=== PATIENT | female | born 1990 | race Caucasian/White ===

== ENCOUNTER 2017-03-15 11:46 | Emergency (ER) | payer MEDICAID ==
[~2017-03-15] VITALS: Ht 149.9 cm; Wt 54.0 kg
[2017-03-15 11:49] VITALS: Ht 149.9 cm; Wt 54.0 kg
[2017-03-15 13:07] LABS: ADD SCAN DIFF NO
[2017-03-15 13:11] LABS: BASOPHILS % 0.4 % (0.0-2.0); EOSINOPHILS # 0.1 10^3/ul (0.0-0.5); EOSINOPHILS % 0.6 % (0.0-7.0); HEMATOCRIT 38.2 % (37.0-47.0); HEMOGLOBIN 13.1 g/dl (12.0-16.0); LYMPHOCYTES # 2.7 10^3/ul (0.8-2.9); MEAN CORPUSCULAR HEMOGLOBIN 31.2 pg (29.0-33.0); MEAN CORPUSCULAR HGB CONC 34.3 g/dl (32.0-37.0); MONOCYTE # 0.8 10^3/ul (0.3-0.9); MONOCYTES % 8.5 % (0.0-11.0); NEUTROPHILS % 62.3 % (39.0-77.0); PLATELET COUNT 341 10^3/UL (140-415); RED CELL DISTRIBUTION WIDTH 12.7 % (11.5-14.5); WHITE BLOOD COUNT 9.6 10^3/ul (4.8-10.8)
[2017-03-15 13:21] LABS: ADD UMIC YES; UR ASCORBIC ACID NEGATIVE (NEGATIVE); UR BACTERIA FEW /HPF (NONE SEEN); UR BILIRUBIN (Dip) NEGATIVE (NEGATIVE); UR BLOOD (Dip) 3+ mg/dL (NEGATIVE); UR CLARITY CLEAR (CLEAR); UR COLOR YELLOW (YELLOW); UR GLUCOSE (Dip) NEGATIVE (NEGATIVE); UR KETONES (Dip) NEGATIVE (NEGATIVE); UR LEUKOCYTE ESTERASE (Dip) NEGATIVE Leu/ul (NEGATIVE); UR NITRITE (Dip) NEGATIVE (NEGATIVE); UR RBC 32 /HPF (0-5); UR SPECIFIC GRAVITY (Dip) 1.013 (1.003-1.030); UR TOTAL PROTEIN (Dip) NEGATIVE (NEGATIVE); UR UROBILINOGEN (Dip) NEGATIVE (NEGATIVE)
--- NOTE | 2017-03-15 13:33 | RADRPT ---
PROCEDURE: US OB. CLINICAL INDICATION: Vaginal bleeding a first trimester female. TECHNIQUE: Transabdominal and transvaginal views of the pelvis are available for review. COMPARISON: No prior studies are available for comparison. FINDINGS: The uterus measures 7.1 cm sagittal by 3.2 cm AP by 3.7 cm transverse. The endometrial thickness tra nsabdominal imaging is 6.2 mm. No gestational sac is identified. Free fluid is noted in the cul-de -sac near the cervix. The right ovary measures 2.7 x 1.3 x 1.5 cm. The left ovary measures 2.4 x 1.2 x 1.4 cm. IMPRESSION: 1. No IUP is identified. Findings are suggestive of a spontaneous . The differential diagn osis includes ectopic or normal early IUP. 2. When no IUP is demonstrated, correlation with serial beta HCG is recommended. With a quantitative beta HCG >2000, the differential diagnosis includes spontaneous or ecto pic . Therefore, clinical follow-up is recommended including correlation with serial quant itative beta HCG levels and repeat sonogram with rising levels and/or/or localized or persistent camron n. With quantitative beta HCG < 2000, the differential diagnosis includes early normal IVP or spontaneo us or ectopic . Therefore, clinical follow-up is recommended including correlatio n with serial quantitative beta HCG levels and arising levels and / or persistent pain. 3. The ovaries are unremarkable. 4. Trace fluid in the cul-de-sac. 5. Findings were phoned to the emergency room physician. RPTAT:AAJJ Physician Jarad Date Time Electronically viewed and signed by Physician Jarad on 03/15/2017 13:32 PHILLIP/
[2017-03-15] MEDS ORDERED: CEPH-443 PO (14:21)
--- NOTE | 2017-03-15 14:31 | ERD ---
ER Documentation Chief Complaint Date/Time DATE: 03/15/17 TIME: 14:24 Chief Complaint vaginal bleeding and pelvic pain x today 5 weeks HPI Patient is a 26-year-old female, G2, P0, A1, who presents to the ED for concerns of vaginal bleeding and bilateral pelvic pain which started this morning. Patient reports bright red blood. Patient states she is 4 pads thus far today. Patient denies any fevers, chills, nausea, vomiting. Patient denies any dysuria, urgency or diarrhea. Patient states her last menstrual period was on January 24, 2017 ROS All systems reviewed and are negative except as per history of present illness. Medications Home Meds Active Scripts Cephalexin* (Keflex*) 500 Mg Capsule, 500 MG PO QID for 7 Days, CAP Prov:ANTOLIN SEGOVIA PA-C 03/15/17 Allergies Allergies: Coded Allergies: No Known Allergy (Unverified , 03/15/17) PMhx/Soc Medical and Surgical Hx: pt denies Medical Hx, pt denies Surgical Hx History of Surgery: No Anesthesia Reaction: No Hx Neurological Disorder: No Hx Respiratory Disorders: No Hx Cardiac Disorders: No Hx Psychiatric Problems: No Hx Miscellaneous Medical Probl: No Hx Alcohol Use: No Hx Substance Use: No Hx Tobacco Use: No Smoking Status: Never smoker Physical Exam Vitals Vital Signs Date Time Temp Pulse Resp B/P Pulse Ox O2 Delivery O2 Flow Rate FiO2 03/15/17 11:49 98.2 73 16 119/76 99 Physical Exam GENERAL: Well-developed, well-nourished female. Appears in no acute distress. HEAD: Normocephalic, atraumatic. EYES: Pupils are equally reactive bilaterally. EOMs grossly intact. No conjunctival erythema. ENT: Moist mucous membranes. No uvula deviation. No kissing tonsils. NECK: Supple. No meningismus. Normal range of motion of the neck. LUNG: Clear to auscultation bilaterally. No rhonchi, wheezing, rales or coarse breath sounds. HEART: Regular rate and rhythm. No murmurs, rubs or gallops. ABDOMEN: Soft, and nondistended. Tender to palpation in the suprapubic region. Positive bowel sounds in all four quadrants. No rebound tenderness, no guarding. (-) McBurney's point tenderness. No CVA tenderness. BACK: No midline tenderness. EXTREMITIES: Equal pulses bilaterally. No peripheral clubbing, cyanosis or edema. No unilateral leg swelling. NEUROLOGIC: Alert and oriented. Moving all four extremities without any difficulty. Normal speech. Steady gait. SKIN: Normal color. Warm and dry. No rashes or lesions. Result Diagram: 03/15/17 1255 Results 24 hrs Laboratory Tests Test 03/15/17 12:55 White Blood Count 9.610^3/ul Red Blood Count 4.2010^6/ul Hemoglobin 13.1g/dl Hematocrit 38.2% Mean Corpuscular Volume 91.0fl Mean Corpuscular Hemoglobin 31.2pg Mean Corpuscular Hemoglobin Concent 34.3g/dl Red Cell Distribution Width 12.7% Platelet Count 21259^3/UL Mean Platelet Volume 10.0fl Neutrophils % 62.3% Lymphocytes % 28.0% Monocytes % 8.5% Eosinophils % 0.6% Basophils % 0.4% Nucleated Red Blood Cells % 0.0/100WBC Neutrophils # 6.010^3/ul Lymphocytes # 2.710^3/ul Monocytes # 0.810^3/ul Eosinophils # 0.110^3/ul Basophils # 0.010^3/ul Nucleated Red Blood Cells # 0.010^3/ul Urine Color YELLOW Urine Clarity CLEAR Urine pH 5.0 Urine Specific [place] 1.013 Urine Ketones NEGATIVEmg/dL Urine Nitrite NEGATIVEmg/dL Urine Bilirubin NEGATIVEmg/dL Urine Urobilinogen NEGATIVEmg/dL Urine Leukocyte Esterase NEGATIVELeu/ul Urine Microscopic RBC 32/HPF Urine Microscopic WBC 23/HPF Urine Bacteria FEW/HPF Urine Hemoglobin 3+mg/dL Urine Glucose NEGATIVEmg/dL Urine Total Protein NEGATIVEmg/dl Beta HCG, Quantitative 8.6mIU/ml Procedures/MDM ED COURSE: The patient was stable throughout ED course. I kept the patient and/or family informed of laboratory and diagnostic imaging results throughout the ED course. DIAGNOSTIC IMAGING: Read by radiologist. Patient: DAVID NO : 1990 Age: 26 Sex: F MR #: [id number] DOS: 03/15/17 1233 Ordering MD: ANTOLIN SEGOVIA PA-C Location: [facility] Room/Bed: PROCEDURE: US OB. CLINICAL INDICATION: Vaginal bleeding a first trimester female. TECHNIQUE: Transabdominal and transvaginal views of the pelvis are available for review. COMPARISON: No prior studies are available for comparison. FINDINGS: The uterus measures 7.1 cm sagittal by 3.2 cm AP by 3.7 cm transverse. The endometrial thickness transabdominal imaging is 6.2 mm. No gestational sac is identified. Free fluid is noted in the cul-de-sac near the cervix. The right ovary measures 2.7 x 1.3 x 1.5 cm. The left ovary measures 2.4 x 1.2 x 1.4 cm. IMPRESSION: 1. No IUP is identified. Findings are suggestive of a spontaneous . The differential diagnosis includes ectopic or normal early IUP. 2. When no IUP is demonstrated, correlation with serial beta HCG is recommended. With a quantitative beta HCG >2000, the differential diagnosis includes spontaneous or ectopic . Therefore, clinical follow-up is recommended including correlation with serial quantitative beta HCG levels and repeat sonogram with rising levels and/or/or localized or persistent pain. With quantitative beta HCG < 2000, the differential diagnosis includes early normal IVP or spontaneous or ectopic . Therefore, clinical follow-up is recommended including correlation with serial quantitative beta HCG levels and arising levels and / or persistent pain. 3. The ovaries are unremarkable. 4. Trace fluid in the cul-de-sac. 5. Findings were phoned to the emergency room physician. RPTAT:AAJJ Physician Jarad Date Time Electronically viewed and signed by Physician Jarad on 03/15/2017 13:32 PHILLIP/ CC: ANTOLIN SEGOVIA PA-C MEDICAL DECISION MAKING: This is a 26-year-old female who presents with vaginal bleeding and pelvic pain 1 day. Vital signs were reviewed. Patient was afebrile. Patient was hemodynamically stable. Beta-hCG was noted to be 8.6. Patient was a positive. No RhoGam was given. CBC showed no evidence of systemic infection or severe anemia. Pelvic ultrasound showed 1. No IUP is identified. Findings are suggestive of a spontaneous . The differential diagnosis includes ectopic or normal early IUP. Urinalysis showed positive RBCs, positive WBCs. At this time, the patient's presentation is most consistent with spontaneous and urinary tract infection. Unable to definitively rule out ectopic at this time however low suspicion. Suspicion for molar , subchorionic hematoma, incomplete , missed , placental abruption, and embryonic . PRESCRIPTIONS: Keflex DISCHARGE: At this time, patient is stable for discharge and outpatient management. I had a conversation at length with the patient about the concerns of vaginal bleeding during the 1st trimester of . Patient and/or family understands that her vaginal bleeding can be a normal finding or a sign of miscarriage. I have instructed the patient to follow-up with her OBGYN in 2 days or return to ED in 2 days for further monitoring including a repeat b-HCG level. I have instructed the patient to promptly return to the ER at any time for any new or worsening symptoms including increased pain, nausea, vomiting, continued bleeding, weakness, syncope or fever. The patient and/or family expressed understanding of and agreement with this plan. All questions were answered. Home care instructions were provided. Departure Diagnosis: Primary Impression: Spontaneous Additional Impression: Vaginal bleeding in patient at less than 20 weeks ges... Condition: Stable Patient Instructions: Bleeding During Early Referrals: COMMUNITY CLINICS YOU HAVE RECEIVED A MEDICAL SCREENING EXAM AND THE RESULTS INDICATE THAT YOU DO NOT HAVE A CONDITION THAT REQUIRES URGENT TREATMENT IN THE EMERGENCY DEPARTMENT. FURTHER EVALUATION AND TREATMENT OF YOUR CONDITION CAN WAIT UNTIL YOU ARE SEEN IN YOUR DOCTORS OFFICE WITHIN THE NEXT 1-2 DAYS. IT IS YOUR RESPONSIBILITY TO MAKE AN APPOINTMENT FOR FOLOW-UP CARE. IF YOU HAVE A PRIMARY DOCTOR --you should call your primary doctor and schedule an appointment IF YOU DO NOT HAVE A PRIMARY DOCTOR YOU CAN CALL OUR PHYSICIAN REFERRAL HOTLINE AT IF YOU CAN NOT AFFORD TO SEE A PHYSICIAN YOU CAN CHOSE FROM THE FOLLOWING [facility] CL[facility] [address] [facility] [address] [facility]. [facility] [address] [facility] [address] [facility] [address] [facility]. [facility] [address] [facility]. [facility] YOU HAVE RECEIVED A MEDICAL SCREENING EXAM AND THE RESULTS INDICATE THAT YOU DO NOT HAVE A CONDITION THAT REQUIRES URGENT TREATMENT IN THE EMERGENCY DEPARTMENT. FURTHER EVALUATION AND TREATMENT OF YOUR CONDITION CAN WAIT UNTIL YOU ARE SEEN IN YOUR DOCTORS OFFICE WITHIN THE NEXT 1-2 DAYS. IT IS YOUR RESPONSIBILITY TO MAKE AN APPOINTMENT FOR FOLOW-UP CARE. IF YOU HAVE A PRIMARY DOCTOR --you should call your primary doctor and schedule and appointment IF YOU DO NOT HAVE A PRIMARY DOCTOR YOU CAN CALL OUR PHYSICIAN REFERRAL HOTLINE AT . IF YOU CAN NOT AFFORD TO SEE A PHYSICIAN YOU CAN CHOSE FROM THE FOLLOWING [facility]IC HOSP[facility] INSTITUTIONS: [facility] [address] [place] [address] [facility] [address] [place] [address] [facility] + [facility] [address] [place] [address] Additional Instructions: Call your primary care doctor TOMORROW for an appointment during the next 1-2 days.See the doctor sooner or return here if your condition worsens before your appointment time. Follow up with OBGYN or return here in 2 days for recheck of BHCG. ANTOLIN SEGOVIA PA-C Mar 15, 2017 14:31
[2017-03-15 14:36] VITALS: BP 115/74; PULSE 67; RESP 18; TEMP 98.2
== END 2017-03-15 14:37 | disposition home or self-care (01) ==
LOC: FTE 11:46
DX: O03.9 Complete or unspecified spontaneous abortion without complication (principal); R10.2 Pelvic and perineal pain
CPT/HCPCS: 36415; 76801; 76817; 81001; 84702; 85025; 86900; 86901; Z7502

== ENCOUNTER 2018-04-09 09:12 | Emergency (ER) | END 2018-04-09 12:19 | disposition home or self-care (01) ==

== ENCOUNTER 2019-03-07 08:55 | Outpatient (CLI) | payer MEDICAID ==
[~2019-03-07] VITALS: Ht 149.9 cm; Wt 64.0 kg
[~2019-03-07 08:55] MED LIST: CEPH-443 PO; CYCL10TA7 PO; IBUP-1542 PO; NITR-58 PO
[2019-03-07 10:05] VITALS: Ht 149.9 cm; Wt 64.0 kg
[2019-03-07 10:06] VITALS: BP 113/77; PULSE 83; RESP 18
--- NOTE | 2019-03-07 12:31 | TRIAGE ---
OB Triage Datetime Report Generated by CPN: 03/07/2019 12:31 Datetime: 03/07/2019 10:18 Vaginal Exam Dilatation (cms): 1.5 Effacement (%): 70 Station: -3 Exam By: CHARU RN Vaginal Bleeding: None Cervix, Consistency: Moderate Cervix, Position: Anterior Presentation 'A': Cephalic Datetime: 03/07/2019 10:11 Maternal Assessment Level of Consciousness: Keenly Alert, Responsive DTR's/Clonus: DTRs 2+ Headache: Denies Blurred Vision: No Nausea/Vomiting: Denies RUQ Epigastric Pain: Denies Facial Edema: None Labor Evaluation Monitor Mode: External Quality: Moderate Pattern: Normal: <= 5 Contractions in 10 Minutes Resting Tone [place]: Relaxed Heart Rate FHR Baseline Rate: 150 Monitor Mode: External US FHR Baseline Changes: No Baseline Change Variability: Moderate 6-25 bpm Accelerations: 15X15 Decelerations: None Category: Category I Pain Assessment Pain Scale: 0 Pain Presence: None/Denies Pain Goal: 3 Membrane Status: Intact Datetime: 03/07/2019 10:10 Time of Arrival: 03/07/2019 08:50 EGA: 39.1 Arrived By: Ambulatory Arrived From: Home Chief Complaint: HERE FOR US FOR SIZE VS DATES Movement: Present Contractions: Regular Contractions: 2-3 Rupture of Membranes: Denies Vaginal Bleeding: None Vaginal Discharge: Denies Recent Sexual Intercouse: Denies Abdominal Trauma: Not Applicable Patient Complaints: Other Time Provider Notified: 03/07/2019 09:30 Provider Notified: DR OLSEN Initial Plan: EFM,ALL DR SANTOS AFTER RESULTS OF US ARE IN
--- NOTE | 2019-03-07 16:37 | PN ---
Triage Information Date/Time Reason for visit: This is from patient sent from the clinic for ultrasound for size more than date Weeks of Gestation 39 weeks and 1 day /Para -0-1-0 Diabetes: none Hypertention: none Objective Vital Signs Date Temp Pulse Resp B/P (MAP) Pulse Ox O2 O2 Flow FiO2 Time Delivery Rate 03/07/19 98.3 83 18 113/77 Room Air 10:06 (89) Heart Rate: 140's Contractions: None Disposition: Discharge Assessment/Plan 28 years old -0-1-0 with single intrauterine at 39 weeks and 1day referred for ultrasound for antepartum testing in size more than date. She states good movement. She denies nausea, vomiting, shortness of breath, chest pain, headache, visual changes, vaginal bleeding or LOF. -FHR: No sign of metabolic acidosis- Category I -Contractions: None -Ultrasound performed: Normal NYLA, BPP 8 out of 8, EFW 3676 g -Symptoms and sign of labor, preeclampsia, kick count discussed with patient, she voiced understanding. All of her questions answered. -Patient was discharged home in stable condition with the appropriate discharge instructions provided. I would like patient to have close follow-up with her primary physician or outpatient clinic in 1-2 days or return to triage for worsening symptoms or any other urgent concerns. LEANDRO OLSEN Mar 07, 2019 16:36
== END 2019-03-07 12:30 | disposition home or self-care (01) ==
LOC: L-D 08:55 → OBT 08:55 → L-D 10:11 → OBT 12:30
PROVIDERS: ATTEND Obstetrics & Gynecology
DX: O36.63X0 Maternal care for excessive fetal growth, third trimester, not applicable or unspecified (principal); Z3A.39 39 weeks gestation of pregnancy
CPT/HCPCS: 76815; 76818; Z7500; G0463

== ENCOUNTER 2019-03-10 17:00 | Inpatient (IN) | payer MEDICAID ==
[~2019-03-10] VITALS: Ht 144.8 cm; Wt 64.4 kg
[2019-03-10] MEDS ORDERED: LACTATED RINGER'S 1,000 ML IV PRN (21:41)
[2019-03-10 21:46] VITALS: BP 115/71; PULSE 88; RESP 18; Ht 144.8 cm; Wt 64.4 kg
[2019-03-10] MEDS ORDERED: MISOPROSTOL 200 MCG TAB PR PRN (22:00)
[2019-03-10] MEDS ORDERED: CARBOPROST 250 MCG INJ IM PRN (22:00)
[2019-03-10] MEDS ORDERED: OXYTOCIN 30 UNITS/LR 500 ML IV SCH ×2 (22:00)
[2019-03-10] MEDS ORDERED: BUTORPHANOL 2 MG INJ IV PRN (22:00)
[2019-03-10] MEDS ORDERED: OXYTOCIN 30 UNITS/LR 500 ML IV PRN ×2 (22:00→23:00)
[2019-03-10] MEDS ORDERED: IBUPROFEN 600 MG TAB PO PRN (22:00)
[2019-03-10] MEDS ORDERED: METHYLERGONOVINE 0.2 MG INJ IM PRN (22:00)
[2019-03-10] MEDS ORDERED: LIDOCAINE 1% (MPF) 30 ML INJ INJ PRN (22:00)
[2019-03-10] MEDS: LACTATED RINGER'S 1,000 ML IV SCH (22:17)
[2019-03-10] MEDS ORDERED: MISOPROSTOL 50 MCG CAPSULE PO SCH (23:00)
[2019-03-11] MEDS: LACTATED RINGER'S 1,000 ML IV SCH ×2 (06:35→15:11)
--- NOTE | 2019-03-11 15:44 | HP ---
Date/Time of Note Date/Time of Note DATE: 03/11/19 TIME: 15:40 OB - History Hx of Present Free Text/Dictation 28 years old -0-1-0 with single intrauterine at 39 weeks and 5 days complaining of uterine contractions. She states good movement. She denies nausea, vomiting, shortness of breath, chest pain, headache, visual changes, vaginal bleeding or LOF. Chief Complaint: Uterine contractions Estimated Due Date: Mar 13, 2019 : 2 Para: 0 Spontaneous : 1 Care: Good Care Ultrasounds: Normal mid trimester US Obstetrical Complications: None Medical Complications: None Past Family/Social History * Past Medical, Surgical, Family and Obstetric Histories reviewed from chart. Blood Type: A+ Rubella: immune RPR/VDRL: Negative GBS Status: Negative HBsAG: Negative OB Admission Exam Vital Signs Vital Signs Vital Signs Date Temp Pulse Resp B/P (MAP) Pulse Ox O2 O2 Flow FiO2 Time Delivery Rate 03/10/19 99.1 88 18 115/71 Room Air 21:46 (86) Physical Exam HEENT: WNL Heart: Rhythm Normal Abdomen: WNL Extremities: Normal Reflexes: Normal Cervical Dilatation: 2cm Effacement: 50% Station: -3 Membranes: Intact Heart Rate: 130's Accelerations: Accelerations Present Decelerations: No Decelerations Varibility: Moderate Contractions on Admission: < 5 Minutes Apart Intensity: Moderate Last 72 hours Lab Results CBC & BMP 03/10/19 22:20 OB Assessment/Plan Other plan: 28 years old -0-1-0 with single intrauterine at 39 weeks and 5 da ys in early labor. -FHR: No sign of metabolic acidosis- Category I -Continuous EFM, toco -CBC, blood type and screen -Cytotec for augmentation of labor then Pitocin base of contractions pattern -Ultrasound performed: EFW 3522 g -Analgesia options with R/B/A discussed in detail with patient -Epidural per patient request -Please see the orders -A+/Rubella: Immune -GBS: Negative Admission, procedures, expectations, risks and possible complications have been discussed in detail with the patient. Risk of vaginal delivery including but not limited to bleeding, infection, cervical laceration, placental retention, injury to fetus, blood transfusion, blood transfusion related infection, risk of anesthesia, adhesion, cervical laceration, episiotomy/laceration, possible delivery with risk of bleeding, infection, injury to other organs (bowel, bladder, ureter, vessels, nerves), injury to fetus, blood transfusion, blood transfusion related infection, risk of anesthesia, scar and hernia formation, needs for future , removal of uterus or any other indicated surgery discussed with the patient. She expressed understanding and repeats the risks. All of her questions were answered. She signed the informed consent. PHYSICIAN'S VERIFICATION OF INFORMED CONSENT The patient was counseled regarding the procedure, its indications, risks, potential complications and alternatives and any questions were answered. Consent was obtained. PLANNED PROCEDURE/TREATMENT: Vaginal delivery, episiotomy, repair of laceration possible delivery LEANDRO OLSEN Mar 11, 2019 15:44
--- NOTE | 2019-03-11 20:16 | PREAC ---
Date/Time of Note Date/Time of Note DATE: 03/11/19 TIME: 20:15 Anesthesia Eval and Record Evaluation Time Pre-Procedure Interview DATE: 03/11/19 TIME: 20:15 Age 28 Sex female NPO: Other (na) Preoperative diagnosis labor Planned procedure epidural Past Medical History Past Medical History: None Surgery & Anesthesia Issues No known issue Meds Anticoagulation: No Beta Peyman within 24 hr: No Reason Beta Peyman not given: Pt. not on B-Peyman Active Scripts Cyclobenzaprine Hcl* (Cyclobenzaprine Hcl*) 10 Mg Tablet, 10 MG PO Q12 PRN for MUSCLE SPASMS, #20 TAB Prov:PASILANEGRITA MOROCHO F 04/09/18 Ibuprofen* (Motrin*) 600 Mg Tab, 600 MG PO Q6H PRN for PAIN AND OR ELEVATED TEMP, #30 TAB Prov:SHERRONILANEGRITA MOROCHO F 04/09/18 Nitrofurantoin Monohyd Macrocr* (Macrobid*) 100 Mg Capsr, 100 MG PO BID for 14 Days, CAP Prov:SHERRONILARASHAWNNEGRITA F 04/09/18 Cephalexin* (Keflex*) 500 Mg Capsule, 500 MG PO QID for 7 Days, CAP Prov:ANTOLIN SEGOVIA PA-C 03/15/17 Current Medications Lactated Ringer's 1,000 ml @ 125 mls/hr Q8H IV Last administered on 03/11/19at 15:11; Admin Dose 125 MLS/HR; Start 03/10/19 at 21:41 Butorphanol Tartrate (Stadol) 2 mg Q2H PRN IV .PAIN SCALE 6-10; Start 03/10/19 at 22:00 Lidocaine (Xylocaine 1% (Mpf)) 30 ml ONCE PRN INJ .EPISIOTOMY; Start 03/10/19 at 22:00 Oxytocin/Lactated Ringer's 500 ml @ 500 mls/hr ONCE POST IV ; Start 03/10/19 at 22:00 Oxytocin/Lactated Ringer's 500 ml @ 125 mls/hr POST IV ; Start 03/10/19 at 22:00 Ibuprofen (Motrin) 600 mg ONCE PRN PO .PAIN 1-5; Start 03/10/19 at 22:00 Lactated Ringer's 1,000 ml @ 2,000 mls/hr Q30M PRN IV .ANESTHESIA Last administered on 03/11/19at 20:01; Admin Dose 2,000 MLS/HR; Start 03/10/19 at 21:41 Oxytocin/Lactated Ringer's 500 ml @ 0 mls/hr ONCE PRN IV .VAGINAL BLEEDING; Start 03/10/19 at 22:00 Methylergonovine Maleate (Methergine) 0.2 mg ONCE PRN IM .VAGINAL BLEEDING; Start 03/10/19 at 22:00 Carboprost Tromethamine (Hemabate) 250 mcg ONCE PRN IM .VAGINAL BLEEDING; Start 03/10/19 at 22:00 Misoprostol (Cytotec) 1,000 mcg ONCE PRN [place] .VAGINAL BLEEDING; Start 03/10/19 at 22:00 Oxytocin/Lactated Ringer's 500 ml @ 0 mls/hr FOR AUGMENTATION PRN IV LABOR INDUCTION Last administered on 03/11/19at 06:51; Admin Dose 1 MLS/HR; Start 03/10/19 at 23:00 Meds reviewed: No Allergies Coded Allergies: No Known Allergy (Unverified , 04/09/18) Allergies Reviewed: No Labs/Studies Labs Reviewed: Reviewed by anesthesiologist Result Diagram: 03/10/19 2220 Laboratory Tests 03/10/19 22:20 Blood Bank Test 03/10/19 22:20 Antibody Screen NEGATIVE Blood Type A POSITIVE Rh Immune Globulin Candidate NO test: N/A Pre-procedure Exam Last vitals Vital Signs Date Temp Pulse Resp B/P (MAP) Pulse Ox O2 O2 Flow FiO2 Time Delivery Rate 03/10/19 99.1 88 18 115/71 Room Air 21:46 (86) Airway: Adequate mouth opening, Adequate thyromental dist Mallampati: Mallampati III Teeth: Normal Lung: Normal Heart: Normal ASA Physical Status ASA physical status: 2 Emergency: None Pre-operative Attestations Prior to commencing anesthesia and surgery, the patient was re-evaluated, there was verification of: *The patient's identity *The results of appropriate recent lab work and preoperative vital signs *The above evaluation not changing prior to induction *Anesthetic plan, risk benefits, alternative and complications discussed with patient/family; questions answered; patient/family understands, accepts and wishes to proceed. THAIS DAMON DO Mar 11, 2019 20:16
[2019-03-11] MEDS ORDERED: FENTAnyl 2MCG/ML-ROPIV 0.2% 100 ML ONE (20:18)
[2019-03-11] MEDS ORDERED: DIPHENHYDRAMINE 50 MG INJ IV PRN (20:30)
[2019-03-11] MEDS ORDERED: NALOXONE (0.4 MG/ML) INJ IV PRN (20:30)
[2019-03-11] MEDS ORDERED: FENTAnyl 2MCG/ML-ROPIV 0.2% 100 ML BAG EPI SCH (20:30)
[2019-03-11] MEDS ORDERED: ONDANSETRON 4 MG INJ IV PRN (20:30)
--- NOTE | 2019-03-11 23:17 | PAC ---
Date/Time of Note Date/Time of Note DATE: 03/11/19 TIME: 23:16 Post-Anesthesia Notes Post-Anesthesia Note Last documented vital signs Vital Signs Date Temp Pulse Resp B/P (MAP) Pulse Ox O2 O2 Flow FiO2 Time Delivery Rate 03/10/19 99.1 88 18 115/71 Room Air 21:46 (86) Activity: WNL Respiratory function: WNL Cardiovascular function: WNL Mental status: Baseline Pain reasonably controlled: Yes Hydration appropriate: Yes Nausea/Vomiting absent: Yes THAIS DAMON DO Mar 11, 2019 23:16
[2019-03-12] MEDS: LACTATED RINGER'S 1,000 ML IV SCH ×4 (01:32→21:41)
--- NOTE | 2019-03-12 03:44 | LDN ---
Date/Time of Note Date/Time of Note DATE: 03/12/19 TIME: 03:39 Delivery Summary March 12, 2019 Weeks of Gestation 39 weeks Placenta Delivered: Spontaneously Meconium: Thick Episiotomy: No Indication for episiotomy N/A Perineal laceration: 0 Laceration repair: No perineal laceration Anesthesia type: Epidural Estimated blood loss: 200 Sponge & Needle done & correct: Yes All needle counts correct: Yes Any foreign bodies felt in the: No Infant Delivery Information Sex Sex: male Apgars 1 Minute: 9 5 Minute: 9 Suctioning Nose & mouth suctioned at etta: Yes Delee suction performed: Yes Umbilical Cord Umbilical cord with: 3 Vessels Cord presentations: no nuchal cord Cord Blood was obtained: Yes Mother & Baby Disposition Disposition I was called to cover for delivery. Patient was undergoing induction of labor by primary attending. Signed out for delivery. Attended to the patient bedside. Patient was patient. Complete complete +3. Baby delivered in vertex presentation. Thick meconium noted. After delivery of the head anterior than posterior shoulder and the rest of the body delivered without any complication. Immediately nose and mouth was suctioned using daily suction. Then cord was clamped and cut after 30 seconds. Baby was then handed to waiting nursing team Placenta then delivered complete and intact. Cord blood was obtained. Fundal massage applied. 600 Cytotec was placed rectally. No perineal tear noted. Fundus was firm. He mostasis was complete. JOSE FATIMA MD Mar 12, 2019 03:44
[2019-03-12 05:00] VITALS: BP 107/56; PULSE 87; RESP 18
[2019-03-12] MEDS ORDERED: OXYTOCIN 30 UNITS/LR 500 ML IV SCH (05:02)
[2019-03-12] MEDS ORDERED: MISOPROSTOL 200 MCG TAB PR PRN (05:30)
[2019-03-12] MEDS ORDERED: DIPHENHYDRAMINE 25 MG CAP PO PRN (05:30)
[2019-03-12] MEDS ORDERED: IBUPROFEN 600 MG TAB PO PRN (05:30)
[2019-03-12] MEDS ORDERED: LANOLIN HPA 1 PKT TOP PRN (05:30)
[2019-03-12] MEDS ORDERED: ONDANSETRON 4 MG INJ IV PRN (05:30)
[2019-03-12] MEDS ORDERED: CYCLOBENZAPRINE 10 MG TAB PO PRN (05:30)
[2019-03-12] MEDS ORDERED: NACL 0.9% 3 ML SYG IV SCH (05:30)
[2019-03-12] MEDS ORDERED: ACETAMINOPHEN 325 MG TAB PO PRN (05:30)
[2019-03-12] MEDS ORDERED: OXYTOCIN 30 UNITS/LR 500 ML IV PRN (05:30)
[2019-03-12] MEDS ORDERED: ZOLPIDEM 5 MG TAB PO PRN (05:30)
[2019-03-12] MEDS ORDERED: CARBOPROST 250 MCG INJ IM PRN (05:30)
[2019-03-12] MEDS ORDERED: HYDROCODONE/APAP (5/325) TAB PO PRN (05:30)
[2019-03-12] MEDS ORDERED: WITCH HAZEL/GLYCERIN PAD PR PRN (05:30)
[2019-03-12] MEDS: IBUPROFEN 600 MG TAB PO SCH ×4 (05:34→23:55)
[2019-03-12 08:00] VITALS: BP 87/50; PULSE 86; RESP 18
[2019-03-12] MEDS: SENNA/DOCUSATE NA (8.6MG/50MG) TAB PO SCH ×2 (09:42→22:08)
[2019-03-12 12:00] VITALS: BP 112/61; PULSE 81; RESP 18
[2019-03-12 16:00] VITALS: BP 105/64; PULSE 90; RESP 20
[2019-03-12 20:25] VITALS: BP 99/60; PULSE 100; RESP 18
[2019-03-13 00:20] VITALS: BP 100/57; PULSE 88; RESP 18
[2019-03-13 03:50] VITALS: BP 101/55; PULSE 79; RESP 18
[2019-03-13] MEDS: LACTATED RINGER'S 1,000 ML IV SCH (05:41)
[2019-03-13] MEDS: IBUPROFEN 600 MG TAB PO SCH ×3 (06:35→17:37)
[2019-03-13 08:20] VITALS: BP 96/60; PULSE 74; RESP 18
[2019-03-13] MEDS: SENNA/DOCUSATE NA (8.6MG/50MG) TAB PO SCH ×2 (09:50→21:19)
[2019-03-13 15:35] VITALS: BP 101/56; PULSE 78; RESP 18
[2019-03-13 20:40] VITALS: BP 105/64; PULSE 76; RESP 17
[2019-03-14] MEDS: IBUPROFEN 600 MG TAB PO SCH ×4 (00:18→18:00)
[2019-03-14 04:00] VITALS: BP 99/51; PULSE 72; RESP 18
[2019-03-14 08:00] VITALS: BP 111/67; PULSE 78; RESP 18
[2019-03-14] MEDS ORDERED: VARICELLA VACCINE LIVE/PF 1,350 UNIT/0.5 ML ML SC* ONE (09:00)
[2019-03-14] MEDS ORDERED: MEASLES,MUMPS,RUBELLA VACCINE INJ SC* ONE (09:00)
[2019-03-14] MEDS ORDERED: DIPHTH/TET/ACEL PERTUSS (ADULT) 0.5 ML VIAL IM* ONE ×2 (09:00→17:30)
[2019-03-14] MEDS: SENNA/DOCUSATE NA (8.6MG/50MG) TAB PO SCH (10:22)
--- NOTE | 2019-03-14 16:15 | DS ---
Date/Time of Note Date/Time of Note DATE: 03/14/19 TIME: 16:14 Obstetrical Discharge Record Final Diagnosis Final Diagnosis: Term delivered Other Final Diagnosis Subjective: Patient without complaints. Tolerating a regular diet. Breast- feeding. Lochia within normal limits. Has not ambulated. Objective: Vital signs within normal limits. H/H: 9.2/26.8 General: No apparent distress. Abdomen: Fundus 2 fingerbreadths below the umbilicus Extremities nontender to palpation. Assessment/plan: 1. day #2-routine care. Patient was admitted to the hospital on 03/11/2019 at 39 weeks and 5 days early labor. She was augmented. Her hospital course was uncomplicated. She delivered vaginally on 03/12/2019. 2. Anemia-ferrous sulfate Disposition: Discharged home in stable condition Condition on Discharge Physical Assessment Patient Condition: Stable MILESTONE,DOC LEY Mar 14, 2019 16:15
[2019-03-14 16:16] VITALS: BP 102/56; PULSE 76; RESP 18
[2019-03-14] MEDS ORDERED: IBUP-1542 PO (16:17)
[2019-03-14] MEDS ORDERED: SENOKOTS PO (16:17)
[2019-03-14] MEDS ORDERED: DOCUSATE SODIUM 100 MG CAP PO SCH (21:00)
--- NOTE | 2019-03-15 19:43 | DELSUM ---
Delivery Summary A-C Datetime Report Generated by CPN: 03/15/2019 19:43 DELIVERY PERSONNEL Field Inspector: Shivani Aguayo MATERNAL INFORMATION Delivery Anesthesia: Epidural Medications in Delivery: LR with 30 Units Pitocin, CYTOTEC 600MCG Delivery QBL (ml): 200 Placenta Cultured: No Maternal Complications: None Other Maternal Complications: Induction for Macrosomia LABOR SUMMARY EDC: 03/13/2019 00:00 No. Babies in Womb: 1 Attempted: No Labor Anesthesia: Epidural LABOR INFORMATION Reason for Induction: Not Applicable Complete Dilatation: 03/12/2019 01:14 Cervical Ripening Agents: Cytotec @ Oxytocin: Induction Group B Beta Strep: Negative Antibiotics # of Doses: 0 Steroids Given: None Reason Steroids Not Administered: Not Applicable MEMBRANES Membranes Rupture Method: Spontaneous Rupture of Membranes: 03/11/2019 19:20 Length of Rupture (hr): 8.02 Amniotic Fluid Color: Clear Amniotic Fluid Amount: Small STAGES OF LABOR Stage 2 hr: 2 Stage 2 min: 7 Stage 3 hr: 0 Stage 3 min: 2 VAGINAL DELIVERY Episiotomy: None Laceration Extension: N/A Laceration Type: None Laceration Repair: Not Applicable Initial Vag Sponge Count: 10 Final Vag Sponge Count: 10 Initial Vag Sharps Count: 1 Final Vag Sharps Count: 1 Sponge Count Correct: Yes; Vaginal Sweep Performed Sharps Count Correct: Yes BABY A INFORMATION Delivery Date/Time: 03/12/2019 03:21 Method of Delivery: Vaginal Born in Route : No : N/A Forceps: N/A Vacuum Extraction: N/A Shoulder Dystocia : N/A SHOULDER DYSTOCIA BABY A Infant Delivery Date/Time: 03/12/2019 03:21 PRESENTATION/POSITION BABY A Presentation: Cephalic Cephalic Presentation: Vertex Vertex Position: Left Occipital Posterior Breech Presentation: N/A PLACENTA INFORMATION BABY A Placenta Delivery Time : 03/12/2019 03:23 Placenta Method of Delivery: Spontaneous Placenta Status: Delivered SCORES BABY A Heart Rate 1 min: >100 bpm Resp Effort 1 min: Good Cry Reflex Irritability 1 min: Cough/Sneeze/Pulls Away Muscle Tone 1 min: Active Motion Color 1 min: Body [place], Extremit Blue Resuscitation Effort 1 min: Tactile Stimulation SCORE 1 MIN: 9 Heart Rate 5 min: >100 bpm Resp Effort 5 min: Good Cry Reflex Irritability 5 min: Cough/Sneeze/Pulls Away Muscle Tone 5 min: Active Motion Color 5 min: Body [place], Extremit Blue Resuscitation Effort 5 min: Tactile Stimulation SCORE 5 MIN: 9 INFANT INFORMATION BABY A Gestational Age at Delivery: 39.6 Gestational Status: Full Term- 39- 40.6 Weeks Infant Outcome : Liveborn, with signs of life Condition : Stable Infant Sex: Male IDENTIFICATION/MEDS BABY A ID Band Number: [id number] ID Band Location: Right Leg; Left Arm Sensor Applied: Yes Sensor Number: [id number] Sensor Location : Cord Clamp Vitamin K Given : Not Given Erythromycin Given: Not Given WEIGHT/LENGTH BABY A Birthweight (gm): 3365 Infant Weight (lb): 7 Weight (oz): 7 Length (in): 19.50 Infant Length (cm): 49.53 CORD INFORMATION BABY A No. Cord Vessels: 3 Nuchal Cord : N/A Cord Blood Taken: Yes Suction: Mouth; Nose ASSESSMENT BABY A Complications: Multiple Variable Decels; Meconium Complications- Other: thick meconium Physical Findings at Delivery: Molding of the Head; Within Normal Limits Infant Respirations: Appears Normal Project Coordinator Rn/ALS Called : No Care By: akira Mccoy RN Transferred To: Remains with Mother
== END 2019-03-14 19:10 | disposition home or self-care (01) | DRG 807 ==
LOC: L-D 20:37 → PP1 03-12 05:04
PROVIDERS: ADMIT Obstetrics & Gynecology; ATTEND Obstetrics & Gynecology
PROC: 10E0XZZ Delivery of Products of Conception, External Approach (ICD-10-PCS; principal; 2019-03-14)
DX: O99.02 Anemia complicating childbirth (principal); Z37.0 Single live birth; Z3A.39 39 weeks gestation of pregnancy
CPT/HCPCS: 62322; 76815; 85014; 85018; 85025; 85610; 85730; 86592; 86850; 86900; 86901; 90715; 90716; 99464; J2210; J2590; J3010; J7120